=== PATIENT | female | born 1980 ===

== ENCOUNTER 2019-09-21 13:32 | Inpatient (IN) | payer BC ==
[~2019-09-21] VITALS: Ht 167.6 cm; Wt 74.5 kg
[2019-09-21] VITALS (9 sets, daily range): BP systolic 87–117; BP diastolic 53–67; PULSE 75–96; TEMP 98.2–98.7
--- NOTE | 2019-09-21 19:05 | NUR ---
HERE WITH SPOUSE FOR CYTOTEC INDUCTION OF LABOR. ADMIT SCREENING AND PROCEEDURES BEGUN
[2019-09-21] MEDS ORDERED: PRENATAL TABLET PO (19:31)
[2019-09-21 21:16] LABS: BASO % 0.1 % (0.0-2.0); EOS # 0.1 (0.0-0.7); EOS % 1.1 % (0-4.0); GRAN # 5.8 (1.4-6.5); GRAN % 72.3 % (42.2-75.2); HEMOGLOBIN 10.8 g/dl (12.5-16.0); LYMPH # 1.2 (1.2-3.4); MEAN CELL VOLUME 91 fl (80.0-100.0); MEAN CORPUSCULAR HEMOGLOBIN 30 pg (27.0-31.0); MEAN CORPUSCULAR HGB CONC 33 g/dl (33.0-37.0); MEAN PLATELET VOLUME 10.8 fl (7.4-10.4); MONO # 0.8 (0.1-0.6); MONO % 10.4 % (1.7-9.3); PLATELET COUNT 287 K/mm3 (130-400); RED BLOOD COUNT 3.55 M/mm3 (4.10-5.30); REDCELL DISTRIBUTION WIDTH-CV 13.2 % (11.5-14.5)
[2019-09-21 21:18] LABS: HEMATOCRIT 32.4 % (37.0-47.0)
--- NOTE | 2019-09-21 23:51 | NUR ---
PT SLEEPS - CTXS RECORDING INVERTED Q 3 MIN NOW
[2019-09-22] VITALS (57 sets, daily range): BP systolic 84–111; BP diastolic 49–86; PULSE 51–95; TEMP 98–98.9
--- NOTE | 2019-09-22 04:40 | NUR ---
SLEEPING BETWEEN CHECKS. SVE CLOSED /THICK /SOFTER. 25 MCG CYTOTEC GIVEN. SUPPORTIVE
--- NOTE | 2019-09-22 06:03 | NUR ---
UP TO BR. AM CARES. FEELING CTXS MORE STILL IRREGULAR.
--- NOTE | 2019-09-22 06:34 | NUR ---
Care of pt assumed by this RN. Pt placed back to monitors. Late deceleration noted. IVF bolus infusing. Reactive FHR strip obtained. Pt denies pain with ctx. 0730-Cat 1 FHR strip obtained. Pt requesting bathroom and BB. Per Dr. Levine intermittent monitoring ok. Pt taken off monitors to bathroom and ambulate at this time.
--- NOTE | 2019-09-22 16:31 | NUR ---
Dr. Levine at bedside. SVE per provider unchanged. Discusses section for delivery. Pt agrees to POC. Pt prepped for surgery. 1647-Pt taken off monitors and to OR for delivery.
--- NOTE | 2019-09-22 23:30 | NUR ---
Motrin administered per order at this time. SCDs removed at this time. Fundus firm. Ambulated well to restroom. Flores Catheter removed per order. Pericare provided. Clean linens to bed. Ambulated around room prior to returning to room. POC reviewed. Call-light within reach. Denied questions or concerns.
[2019-09-23] VITALS: BP 100/62; PULSE 78; TEMP 98.9
[2019-09-23] MEDS ORDERED: IBU600 MG PO (09:26)
[2019-09-23] MEDS ORDERED: PERCOCET 325 MG1 TA2 PO (09:27)
[2019-09-23 10:44] VITALS: BP 97/56; PULSE 88; TEMP 98.7
[2019-09-23 18:20] VITALS: BP 106/68; PULSE 82; TEMP 99
[2019-09-24 07:30] VITALS: BP 98/60; PULSE 69; TEMP 98.6
[2019-09-24 17:05] VITALS: BP 104/60; PULSE 77; TEMP 99.3
[2019-09-24 22:20] VITALS: BP 95/62; PULSE 75; TEMP 98
[2019-09-25 06:35] VITALS: BP 94/58; PULSE 74; TEMP 99
== END 2019-09-25 11:45 | disposition home or self-care (01) | DRG 788 ==
LOC: OB 13:32 → LDR 20:39 → OB 09-22 10:24
PROVIDERS: ADMIT Obstetrics & Gynecology
PROC: 3E0P7VZ Introduction of Hormone into Female Reproductive, Via Natural or Artificial Opening (ICD-10-PCS; 2019-09-20)
PROC: 10D00Z1 Extraction of Products of Conception, Low, Open Approach (ICD-10-PCS; principal; 2019-09-21)
PROC: 3E033VJ Introduction of Other Hormone into Peripheral Vein, Percutaneous Approach (ICD-10-PCS; 2019-09-21)
DX: O76 Abnormality in fetal heart rate and rhythm complicating labor and delivery (principal); Z3A.39 39 weeks gestation of pregnancy; Z37.0 Single live birth; O99.02 Anemia complicating childbirth; Z86.19 Personal history of other infectious and parasitic diseases
CPT/HCPCS: J0690; J1885; J2270; J2370; J2400; J2405; J2590; J7120